=== PATIENT | female | born 1965 | race African-American/Black ===

== ENCOUNTER 2019-04-09 15:00 | Emergency (ER) | payer OTHER ==
[2019-04-09 15:07] VITALS: BP 156/86; PULSE 69; TEMP 98.4; BMI 36.6
--- NOTE | 2019-04-09 15:33 | PDOC ---
History of Present Illness - General Chief Complaint: Cold Symptoms Stated Complaint: FLU SYMPTOMS Time Seen by Provider: 04/09/19 15:11 History Source: Patient Exam Limitations: No Limitations Past History - Travel Traveled outside of the country in the last 30 days: No Close contact w/someone who was outside of country & ill: No - Past Medical History Allergies/Adverse Reactions: Allergies Allergy/AdvReac Type Severity Reaction Status Date / Time No Known Allergies Allergy Verified 04/09/19 15:03 Home Medications: Ambulatory Orders Amox-Tr/K Cl [Augmentin - 875Mg Tablet] 1 tab PO BID #20 tablet 04/09/19 Fluticasone Prop 0.05% Nasal [Flonase -] 1 - 2 spray NS DAILY #1 spray.pump Ibuprofen 600 mg PO Q6H #30 tablet 04/09/19 Omeprazole Magnesium [Prilosec] 20 mg PO DAILY 04/09/19 Pseudoephedrine HCl [12 Hour Nasal Decongestant] 120 mg PO BID #20 tablet.er COPD: No - Surgical History Abdominal Surgery: Yes (hernia) Appendectomy: Yes - Immunization History Immunization Up to Date: Yes (no flu) - Psycho Social/Smoking Cessation Hx Smoking History: Never smoked Have you smoked in the past 12 months: Yes Number of Cigarettes Smoked Daily: 1 Hx Alcohol Use: No Drug/Substance Use Hx: No Substance Use Type: None Review of Systems - Review of Systems Able to Perform ROS?: Yes Comments:: 04/09/19 15:28 CONSTITUTIONAL: Absent: fever, chills, diaphoresis, generalized weakness, malaise, loss of appetite HEENT: Present: Nasal congestion, sinus pain, left ear pain absent: rhinorrhea, throat pain, throat swelling, difficulty swallowing, mouth swelling, ear pain, eye pain , visual Changes RESPIRATORY: Absent: cough, shortness of breath, dyspnea with exertion, orthopnea, wheezing, stridor, hemoptysis SKIN: Absent: rash, itching, pallor NEUROLOGIC: Absent: headache, focal weakness or paresthesias, dizziness, unsteady gait, seizure, mental status changes, bladder or bowel incontinence PSYCHIATRIC: Absent: anxiety, depression, suicidal or homicidal ideation, hallucinations. Is the patient limited Yakut proficient: No *Physical Exam - Vital Signs Last Vital Signs Temp Pulse Resp BP Pulse Ox 98.4 F 69 18 156/86 97 04/09/19 15:04 04/09/19 15:04 04/09/19 15:04 04/09/19 15:04 04/09/19 15:04 - Physical Exam 04/09/19 15:29 GENERAL: The patient is awake, alert, and fully oriented, in no acute distress. HEAD: Normal with no signs of trauma. EYES: Pupils equal, round and reactive to light, extraocular movements intact, sclera anicteric, conjunctiva clear. HEENT: (+) nasal congestion and rhinorrhea. (+) Bilateral maxillary and frontal sinus tenderness. Mucous membranes are moist. No tonsillar erythema, exudate or edema. Uvula is midline. No TM bulging, dullness or erythema. The left TM is retracted. EXTREMITIES: Normal range of motion, no edema. NEUROLOGICAL: Normal speech, normal gait. PSYCH: Normal mood, normal affect. SKIN: Warm, Dry, normal turgor, no rashes or lesions noted. Medical Decision Making - Medical Decision Making 04/09/19 15:29 The patient is a 53-year-old female who presents to the ER today for 3 weeks of headache, sinus pain and nasal congestion. She states she has tried many over- the-counter medications without relief of her symptoms. She states that her face hurts to touch. Denies fevers, chills, generalized body aches and cough. A/P: Sinusitis On exam patient has tenderness to palpation of the frontal and maxillary sinuses bilaterally. The left TM is retracted as well. Given length of symptoms and failure of aihj-abm-czxezbs treatment, likely a sinusitis. We will treat with Augmentin, Sudafed and Flonase at this time. We will discharge home to have the patient follow-up with her primary care doctor. I discussed the physical exam findings, ancillary test results and final diagnoses with the patient. I answered all of the patient's questions. The patient was satisfied with the care received and felt comfortable with the discharge plan and treatment plan. The Patient agrees to follow up with the primary care physician/specialist within 24-72 hours. Return precautions were given. Discharge - Discharge Information Problems reviewed: Yes Clinical Impression/Diagnosis: Sinusitis Qualifiers: Sinusitis location: maxillary Chronicity: acute Recurrence: non-recurrent Qualified Code(s): J01.00 - Acute maxillary sinusitis, unspecified Condition: Stable Disposition: HOME - Admission No - Follow up/Referral Referrals: Ilia Mota MD [Primary Care Provider] - - Patient Discharge Instructions Patient Printed Discharge Instructions: DI for Sinusitis Additional Instructions: You have a sinus infection. Please take the Augmentin twice a day for 10 days. Take this medication with food. Please use the Sudafed every 12 hours to help with your congestion. You may take Motrin 600 mg every 6 hours as needed for pain. Please use the Flonase twice a day in each nostril. Use a humidifier at night. Follow-up with your primary care doctor in 1 week. Return to the ER for headaches, fever, neck pain, or if you have any changes in your symptoms. - Post Discharge Activity Work/Back to School Note: Back to Work
== END 2019-04-09 15:35 | disposition home or self-care (01) ==
LOC: JERFT 15:00
DX: J01.00 Acute maxillary sinusitis, unspecified (principal)
CPT/HCPCS: 99282-25

== ENCOUNTER 2019-11-02 19:51 | Emergency (ER) | payer OTHER ==
--- NOTE | 2019-11-02 20:05 | PDOC ---
Rapid Medical Evaluation Time Seen by Provider: 11/02/19 20:00 Medical Evaluation: Allergies Allergy/AdvReac Type Severity Reaction Status Date / Time No Known Allergies Allergy Verified 11/02/19 20:00 11/02/19 20:02 Pt presents for evaluation of dysuria for the past fair two days. States she tried to see her PCP but they couldnt see her until November 12. Using AZO with some relief of symptoms. Denies fevers, back pain, n/v/d, vaginal discharge Exam: Suprapubic discomfort Orders: UA, UC Pt to proceed to the ER for further evaluation Discharge Disposition - Diagnosis Dysuria - Referrals - Patient Instructions - Post Discharge Activity
[2019-11-02 20:08] VITALS: BP 139/95; PULSE 78; TEMP 97.9; BMI 37.6
--- NOTE | 2019-11-02 20:28 | PDOC ---
History of Present Illness - General Chief Complaint: Pain Stated Complaint: BURNING ON URINATION Time Seen by Provider: 11/02/19 20:00 - History of Present Illness Initial Comments: 11/02/19 20:27 54-year-old female with a past medical history of GERD presents for 2 days of dysuria no systemic symptoms Past History - Medical History Allergies/Adverse Reactions: Allergies Allergy/AdvReac Type Severity Reaction Status Date / Time No Known Allergies Allergy Verified 11/02/19 20:00 Home Medications: Ambulatory Orders Amox-Tr/K Cl [Augmentin - 875Mg Tablet] 1 tab PO BID #20 tablet 04/09/19 Fluticasone Prop 0.05% Nasal [Flonase -] 1 - 2 spray NS DAILY #1 spray.pump 04/09/19 Ibuprofen 600 mg PO Q6H #30 tablet 04/09/19 Omeprazole Magnesium [Prilosec] 20 mg PO DAILY 04/09/19 Pseudoephedrine HCl [12 Hour Nasal Decongestant] 120 mg PO BID #20 tablet.er 04/09/19 Nitrofurantoin Monohyd/M-Cryst [Macrobid -] 100 mg PO BID #14 capsule 11/02/19 COPD: No - Surgical History Abdominal Surgery: Yes (hernia) Appendectomy: Yes - Reproductive History Is Patient Now?: No - Immunization History Immunization Up to Date: Yes (no flu) - Psycho-Social/Smoking History Smoking History: Current every day smoker Have you smoked in the past 12 months: Yes Number of Cigarettes Smoked Daily: 1 Information on smoking cessation initiated: No - Substance Abuse Hx (Audit-C & DAST Scrn) How often the patient has a drink containing alcohol: Never Score: In Men: 4 or > Positive; In Women: 3 or > Positive: 0 Screen Result (Pos requires Nsg. Audit-10AR): Negative Review of Systems - Review of Systems : Yes: Burning, Dysuria, Frequency. No: Discharge *Physical Exam - Vital Signs Last Vital Signs Temp Pulse Resp BP Pulse Ox 97.9 F 78 20 139/95 96 11/02/19 20:01 11/02/19 20:01 11/02/19 20:01 11/02/19 20:01 11/02/19 20:01 - Physical Exam General Appearance: Yes: Nourished, Appropriately Dressed. No: Apparent Distress HEENT: positive: Normal ENT Inspection, Normal Voice, Symmetrical Neck: positive: Trachea midline, Supple Respiratory/Chest: positive: Normal Breath Sounds. negative: Respiratory Distress Musculoskeletal: positive: Normal Inspection Extremity: positive: Normal Inspection Integumentary: positive: Normal Color Medical Decision Making - Medical Decision Making 11/02/19 20:52 Macrobid for UTI I have reviewed the pathophysiology with the patient. They are in agreement with the treatment plan all questions were answered to their satisfaction. Understanding for follow-up without fail was also conveyed to the patient. Again they are in agreement. Discharge - Discharge Information Problems reviewed: Yes Clinical Impression/Diagnosis: Dysuria, Urinary tract infection Condition: Stable Disposition: HOME - Admission No - Additional Discharge Information Prescriptions: Nitrofurantoin Monohyd/M-Cryst [Macrobid -] 100 mg PO BID #14 capsule - Follow up/Referral Referrals: Rach Mota [Primary Care Provider] - - Patient Discharge Instructions Additional Instructions: Please take the antibiotics as directed and finish the entire course. Return to the emergency room for further issues and without fail follow-up with your primary care physician in 1 to 2 days for further evaluation and treatment options. - Post Discharge Activity
[2019-11-02 20:51] LABS: EPI CELLS 19 /uL (0-25.1); HYALINE CASTS 1 /uL (0-3.1); PH,URINE 5.5 (5.0-8.0); URINE APPEARANCE CLEAR; URINE BILIRUBIN 2+ (NEGATIVE); URINE COLOR ORANGE; URINE GLUCOSE (UA) NEGATIVE (NEGATIVE); URINE KETONE NEGATIVE (NEGATIVE); URINE LEUK ESTERASE 1+ (NEGATIVE); URINE NITRITE POSITIVE (NEGATIVE); URINE PROTEIN TRACE (NEGATIVE); URINE WBC 29 /uL (0-25.8)
[2019-11-02 21:42] LABS: URINE RBC 17.2 /uL (0-23.9)
== END 2019-11-02 20:59 | disposition home or self-care (01) ==
LOC: JER 19:51 → JERFT 19:51
DX: R30.0 Dysuria (principal)
CPT/HCPCS: 81003; 87086; 99282-25

== ENCOUNTER 2021-03-24 04:31 | Day surgery (SDC) | payer OTHER ==
[2021-03-23 11:12] VITALS: BMI 37.9
[2021-03-24] MEDS ORDERED: PROPOFOL 20 ML ONE (07:14)
[2021-03-24] MEDS ORDERED: MIDAZOLAM HCL 2 MG/2 ML SINGLE DOSE VIAL ONE (07:14)
[2021-03-24] MEDS ORDERED: KETAMINE HCL 200 MG/20 ML VIAL ONE (07:14)
[2021-03-24] MEDS ORDERED: BUPIVACAINE HCL/PF 0.5% (5MG/ML) 10 ML VIAL ONE (07:15)
[2021-03-24] MEDS ORDERED: DEXAMETHASONE SOD PHOSPHATE 4 MG/1 ML VIAL ONE (07:15)
[2021-03-24] MEDS ORDERED: LIDOCAINE HCL 1%, 10 MG/ML (20ML VIAL) ONE (07:15)
[2021-03-24] MEDS ORDERED: ceFAZolin SODIUM 1 GM VIAL ONE (07:44)
[2021-03-24] MEDS ORDERED: ceFAZolin 2 GRAM PREMIX BAG IVPB ONE (07:50)
[2021-03-24] MEDS ORDERED: BUPIVACAINE HCL/PF 0.5% (5 MG/ML) 30 ML VIAL IJ ONE (07:55)
[2021-03-24] MEDS ORDERED: LIDOCAINE HCL 1%, 10 MG/ML (20ML VIAL) INF ONE (07:55)
[2021-03-24] MEDS ORDERED: GENTAMICIN SO4 80 MG/2 ML VIAL IVPB ONE (08:10)
[2021-03-24] MEDS ORDERED: GENTAMICIN SO4 80 MG/2 ML VIAL ONE (08:11)
[2021-03-24 10:13] VITALS: BP 116/78; PULSE 70; TEMP 98
== END 2021-03-24 10:20 | disposition home or self-care (01) ==
LOC: JASU-SURG 04:31
PROVIDERS: ATTEND Podiatrist
PROC: 0QBP0ZZ Excision of Left Metatarsal, Open Approach (ICD-10-PCS; 2021-03-24)
PROC: 0HDRXZZ Extraction of Toe Nail, External Approach (ICD-10-PCS; principal; 2021-03-24 07:30)
DX: L60.0 Ingrowing nail (principal)
CPT/HCPCS: 88304-TC; 88311-TC; 88312-TC

== ENCOUNTER 2021-08-21 09:36 | Emergency (ER) | payer OTHER ==
[2021-08-21 09:42] VITALS: BP 150/66; PULSE 70; TEMP 97.8; BMI 37.6
[2021-08-21] MEDS ORDERED: IBUPROFEN 600 MG TABLET (FP) PO ONE ×2 (10:01→10:23)
== END 2021-08-21 11:12 | disposition home or self-care (01) ==
LOC: JERFT 09:36
DX: M25.572 Pain in left ankle and joints of left foot (principal)
CPT/HCPCS: 73590-TC-LT-FY; 73610-TC-LT-FY; 73630-TC-LT; 99284-25

== ENCOUNTER 2023-01-11 04:23 | Day surgery (SDC) | payer OTHER ==
[2022-12-26 13:50] VITALS: BMI 35.9
[2023-01-11] MEDS ORDERED: GENTAMICIN SO4 80 MG/2 ML VIAL ONE (09:54)
[2023-01-11] MEDS ORDERED: LIDOCAINE HCL 1%, 10 MG/ML (20ML VIAL) ONE (09:54)
[2023-01-11] MEDS ORDERED: BUPIVACAINE HCL/PF 0.5% (5MG/ML) 10 ML VIAL ONE (09:55)
[2023-01-11] MEDS ORDERED: PROPOFOL 20 ML ONE (10:24)
[2023-01-11] MEDS ORDERED: MIDAZOLAM HCL 2 MG/2 ML SINGLE DOSE VIAL ONE ×3 (10:25→11:02)
[2023-01-11] MEDS ORDERED: LIDOCAINE HCL 1%, 10 MG/ML (20ML VIAL) INF ONE (10:50)
[2023-01-11] MEDS ORDERED: BUPIVACAINE HCL/PF 0.5% (5MG/ML) 10 ML VIAL IJ ONE (10:50)
[2023-01-11] MEDS ORDERED: ceFAZolin SODIUM 1 GM VIAL IVPB ONE (10:52)
[2023-01-11] MEDS ORDERED: FENTANYL CITRATE/PF 50 MCG/ML VIAL ONE (10:58)
[2023-01-11] MEDS ORDERED: GENTAMICIN SO4 80 MG/2 ML VIAL IVPB ONE (11:20)
[2023-01-11 11:48] VITALS: TEMP 97
[2023-01-11] MEDS ORDERED: PROPOFOL 40 ML ONE (12:01)
[2023-01-11] MEDS ORDERED: oxyCODONE HCL 5 MG TABLET ONE (12:04)
[2023-01-11] MEDS ORDERED: oxyCODONE HCL 5 MG TABLET PO ONE (12:12)
[2023-01-11 13:38] VITALS: BP 100/60; PULSE 78; RESP 20
== END 2023-01-11 13:40 | disposition home or self-care (01) ==
LOC: JASU-SURG 04:23
PROVIDERS: ATTEND Podiatrist
PROC: 0HDRXZZ Extraction of Toe Nail, External Approach (ICD-10-PCS; 2023-01-11)
PROC: 0QBR0ZZ Excision of Left Toe Phalanx, Open Approach (ICD-10-PCS; principal; 2023-01-11 13:30)
DX: M89.9 Disorder of bone, unspecified (principal)
CPT/HCPCS: 73660-TC-LT-FY; 76000-TC-FY; 88305-TC; 88311-TC; 88312-TC

== ENCOUNTER 2023-01-31 11:56 | Emergency (ER) | payer OTHER ==
[2023-01-31 12:11] VITALS: BP 134/74; PULSE 72; RESP 18; TEMP 97.9; BMI 36.9
[2023-01-31] MEDS ORDERED: SODIUM CHLORIDE 0.9% 500 ML INFUS.BAG IV ONE (12:27)
[2023-01-31 12:43] LABS: BASO % 1.1 % (0-2.0); EOS % 1.3 % (0-4.5); HEMATOCRIT 40.7 % (32.4-45.2); HEMOGLOBIN 13.5 GM/dL (10.7-15.3); LYMPH % 24.3 % (8-40); MCHC 33.2 g/dl (32.0-36.0); MEAN CELL VOLUME 90.4 fl (80-96); MEAN PLT VOLUME 7.7 fl (7.5-11.1); MONO % 6.3 % (3.8-10.2); PLATELET COUNT 295 10^3/uL (134-434); RDW 13.1 % (11.6-15.6)
[2023-01-31 13:02] LABS: BLOOD UREA NITROGEN 14.2 mg/dL (7-18); CALCIUM 9.2 mg/dL (8.5-10.1); MAGNESIUM 2.1 mg/dL (1.8-2.4)
[2023-01-31 13:03] LABS: ALBUMIN 3.5 g/dl (3.4-5.0)
[2023-01-31 13:05] LABS: CREATININE 0.9 mg/dL (0.55-1.3)
[2023-01-31 13:07] LABS: BILIRUBIN,TOTAL 1.1 mg/dL (0.2-1)
[2023-01-31 14:32] LABS: TOT PROT 6.9 g/dl (6.4-8.2)
== END 2023-01-31 14:30 | disposition home or self-care (01) ==
LOC: JER 11:56
DX: R11.2 Nausea with vomiting, unspecified (principal); T38.3X5A Adverse effect of insulin and oral hypoglycemic [antidiabetic] drugs, initial encounter
CPT/HCPCS: 36415; 80053; 83735; 85025; 99283-25